=== PATIENT | female | born 1950 | race Caucasian/White ===

== ENCOUNTER 2018-06-12 13:54 | Emergency (ER) | payer MEDICARE ==
[~2018-06-12 13:54] MED LIST: ALPR0.25 PO; ASPI-1012 PO; BIOT25008 PO; CALC-866 PO; CARV25TA77 PO; ESCI10TA PO; FOLI1TAB15 PO; HYDR-4060 PO; METF-444 PO; MULT-40 PO; PANT40TA PO; RAMI5CAP10 PO; ROSU40 PO; TEMA15CA5 PO; VITA400C73 PO
[2018-06-12] MEDS ORDERED: KETOROLAC TROMETHAMINE 30MG/ML ONE (14:51)
[2018-06-12] MEDS ORDERED: HYDROCODONE/ACETAMINOPHEN 10/325 MG TAB ONE (14:52)
== END 2018-06-12 16:14 | disposition home or self-care (01) ==
LOC: EDH 13:54
DX: S40.011A Contusion of right shoulder, initial encounter (principal); E11.9 Type 2 diabetes mellitus without complications; E78.5 Hyperlipidemia, unspecified; I25.2 Old myocardial infarction; Z88.0 Allergy status to penicillin; Z88.7 Allergy status to serum and vaccine; Z88.8 Allergy status to other drugs, medicaments and biological substances; Z90.710 Acquired absence of both cervix and uterus; Z98.890 Other specified postprocedural states; Z90.49 Acquired absence of other specified parts of digestive tract; W01.0XXA Fall on same level from slipping, tripping and stumbling without subsequent striking against object, initial encounter; Y93.01 Activity, walking, marching and hiking; Y92.89 Other specified places as the place of occurrence of the external cause; Y99.8 Other external cause status
CPT/HCPCS: 73030; 73060; 73080; 96372; 99285; J1885